=== PATIENT | female | born 1960 | race African-American/Black ===

== ENCOUNTER 2019-06-21 20:49 | Emergency (ER) | payer OTHER, SELFPAY ==
[2019-06-21 20:51] VITALS: BP 156/106; PULSE 116; RESP 22; TEMP 36.2; O2SAT 100
--- NOTE | 2019-06-21 21:04 | ED.EPISTAXIS ---
HPI - Epistaxis General Chief complaint: Epistaxis Stated complaint: nose bleed Time Seen by Provider: 06/21/19 21:03 Source: patient and RN notes reviewed Mode of arrival: ambulatory Limitations: no limitations History of Present Illness HPI Narrative: Pt is a 59 y/o -[place] female who presents to the ED with c/o epistaxis starting around 18:00 this evening. She notes that she was using the restroom this evening, when she suddenly noticed blood coming from her lt nostril. Pt states that her nose has been actively bleeding ever since. She notes that she has tried rinsing her nose with cold water, but denies having any relief of her symptoms. Pt states that she isn't currently taking any blood thinners. She denies any fever, chills, or other symptoms. MD complaint: epistaxis Location: left nostril Onset (ago): hour(s) (3) Duration: constant Associated symptoms: other (none) Treatment prior to arrival: other (rinsed lt nostril with cold water) Related Data Home Medications Medication Instructions Recorded Confirmed epinephrine 0.3 mg SUBCUT DAILY PRN 03/05/19 03/05/19 valacyclovir 500 mg PO DAILY PRN 03/05/19 03/05/19 Allergies Allergy/AdvReac Type Severity Reaction Status Date / Time shellfish derived Allergy Unknown Swelling Verified 06/21/19 21:00 of Lip/Tongue/Throat latex Allergy Redness of Verified 06/21/19 21:00 Skin Review of Systems Review of Systems: All systems reviewed & are unremarkable except as noted in HPI and below Constitutional: Constitutional: Denies chills and Denies fever(s) ENT: Reports epistaxis PMFSH Past Medical History Medical History Healthy female adult Surgical History Surgical History History of hysterectomy Hx of right breast biopsy Hx of tubal ligation Social History Social History Smoking status: Unknown if ever smoked Exam Const: General: alert Orientation/consciousness: patient oriented x3 HENMT: Head: normocephalic and atraumatic Ears: hearing grossly normal bilaterally General nose exam: Epistaxis present on the left active bleeding and source not visualized Mouth: Yes lip normal and Yes tongue normal Throat: posterior oropharynx normal and tonsils normal Neck: Neck: normal visual inspection Resp: Effort & Inspection: normal respiratory effort Psych: Mental Status: mental status grossly normal Affect: normal affect Course Course Emergency Course: Patient presented with epistaxis from right nostril. First I applied cotton ball soaked with lidocaine with epi to left nare. She continued to have bleeding with clots going posteriorly. I then removed cotton balls and patient blew nose to remove clots. I Applied afrin spray to nose and inserted 5.5 cm rapid rhino to left nare. Patient developed nausea and vomiting with dark blood. Patient assisted back to room without passing out. Reevaluation(s) Reevaluation #1: Patient states she feels better and she no longer have bleeding after rhino rocket in place Date: 06/21/19 Time: 22:42 Vital Signs Vital signs: Vital Signs Temperature 97.2 F L 06/21/19 20:51 Pulse Rate 116 H 06/21/19 20:51 Respiratory Rate 22 H 06/21/19 20:51 Blood Pressure 156/106 H 06/21/19 20:51 Pulse Oximetry 100 06/21/19 20:51 Temperature 98.5 F 06/21/19 22:59 Pulse Rate 85 06/21/19 22:59 Respiratory Rate 16 06/21/19 22:59 Blood Pressure 124/99 H 06/21/19 22:59 Pulse Oximetry 100 06/21/19 22:59 Procedures Epistaxis Control left: Epistaxis Control Date: 06/21/19 Epistaxis Control Time: 22:42 Time Out Performed: No Nose Prepped With: lidocaine Direct Inspection: unable to visualize Clots Removed by: blowing nose Cautery Used: none Device Inserted: nasal tampon Patient
[2019-06-21] MEDS: LIDO 1%/EPINEPHRINE 1:100,000 20 ML VIAL INFILTRATE (21:25)
--- NOTE | 2019-06-21 22:05 | PC.NURSE ---
Patient assisted into the bathroom. Patient pulls cord for help. Patient is in bathroom vomiting. Patient states she got really hot, then started to throw up. I guess it was the the blood that I swallowed. Patient was assisted into a w/c and taken back to the room. Patient states she did not fall. Patient states she feels better after vomiting. Patient was assisted back into the bed by this RN and an apartment maintenance technician. Patient denies any weakness or pain. EDP was in bathroom assisting.
[2019-06-21] MEDS: OXYMETAZOLINE HCL 0.05% NAS 15 ML BTL (*BKC) 2 SPRAY NASAL (22:20)
[2019-06-21] MEDS: ONDANSETRON HCL ODT 4 MG TABLET PO (22:46)
[2019-06-21 22:47] LABS: Basophils Absolute Auto 0.1 K/mm3 (0.0-0.1); Basophils Percent Auto 0.8 % (0.2-1.2); Eosinophils Absolute Auto 0.1 K/mm3 (0-0.3); Eosinophils Percent Auto 1.1 % (0-4.4); Hematocrit 39.6 % (37.0-47.0); Hemoglobin 13.6 g/dL (12.0-15.0); Immature Granulocyte Absolute 0.14 K/mm3 (0.00-0.031); Immature Granulocyte Percent A 1.4 % (0-0.5); Lymphocytes Absolute Auto 2.71 K/mm3 (0.9-3.2); Mean Corpuscular HGB Conc 34.3 g/dl (32-36); Mean Corpuscular Hemoglobin 31.6 pg (26-34); Mean Corpuscular Volume 92.1 fl (80-100); Mean Platelet Volume 9.3 fl (7.4-10.4); Monocytes Absolute Auto 0.7 K/mm3 (0.1-0.6); Monocytes Percent Auto 7.2 % (2.6-8.5); Neutrophils Absolute Auto 6.3 K/mm3 (1.3-6.7); Neutrophils Percent Auto 62.5 % (45.5-73.1); Platelet Count Result 374 k/mm3 (150-375); Red Cell Distribution Width 13.1 % (11.5-14.5)
[2019-06-21 22:50] VITALS: BP 110/61; BP 110/94; BP 130/90; PULSE 115; PULSE 77; PULSE 90
[2019-06-21 22:59] VITALS: BP 124/99; PULSE 85; RESP 16; TEMP 36.9; O2SAT 100
--- NOTE | 2019-06-21 23:23 | PC.NURSE ---
Yoly from Lab calls to inform this nurse that the pink top for the type and screen was hemolyzed and that there needs to be a redraw.
[2019-06-21 23:32] LABS: INR 0.9; Prothrombin Time 12.2 Seconds (11.1-14.7)
[2019-06-21 23:33] LABS: Partial Thromboplastin Time 23.9 SECONDS (22.3-36.8)
[2019-06-21 23:34] LABS: Alanine Aminotransferase 13 U/L (4-35); Albumin Level 4.5 g/dL (3.5-5.1); Alkaline Phosphatase 105 U/L (38-126); Aspartate Amino Transferase 22 U/L (14-36); Bilirubin,Total 0.5 mg/dL (0.2-1.3); Blood Urea Nitrogen 14 mg/dL (7-17); Calcium 9.2 mg/dL (8.4-10.2); Carbon Dioxide 24 mmol/L (22-30); Chloride 106 mmol/L (98-107); Estimated CRCL calculation 58 ml/min; Estimated Glomerular Filt Rate > 60; Glucose 119 mg/dL (65-105); Potassium 3.2 mmol/L (3.4-5.0); Sodium 139 mmol/L (137-145)
--- NOTE | 2019-06-21 23:37 | PC.NURSE ---
This nurse informed EDP that lab stated the type and screen was hemolyzed and would need to be redrawn. EDP stated it was no longer needed.
== END 2019-06-21 23:57 | disposition home or self-care (01) ==
PROVIDERS: Emergency Provider General Practice
DX: R04.0 Epistaxis (principal)
CPT/HCPCS: 30901; 36415; 80053; 85025; 85610; 85730; 86900; 86901; 99283; A9270

== ENCOUNTER 2019-06-22 08:50 | Emergency (ER) | payer OTHER, SELFPAY ==
[2019-06-22 08:59] VITALS: BP 130/100; PULSE 65; RESP 19; TEMP 36.3; O2SAT 99
--- NOTE | 2019-06-22 09:51 | ED.EPISTAXIS ---
HPI - Epistaxis General Chief complaint: Epistaxis Stated complaint: nose bleed Time Seen by Provider: 06/22/19 09:44 Source: patient Mode of arrival: ambulatory Limitations: no limitations History of Present Illness HPI Narrative: Patient is a 59-year-old female who presents to emergency department for evaluation of continued epistaxis patient was seen last night had Rhino Rocket placed left nare. Patient notes she continues to have oozing of blood was concern for possible rebleeding patient notes mild discomfort with the Rhino Rocket. Related Data Home Medications Medication Instructions Recorded Confirmed epinephrine 0.3 mg SUBCUT DAILY PRN 03/05/19 03/05/19 valacyclovir 500 mg PO DAILY PRN 03/05/19 03/05/19 Allergies Allergy/AdvReac Type Severity Reaction Status Date / Time shellfish derived Allergy Unknown Swelling Verified 06/21/19 21:00 of Lip/Tongue/Throat latex Allergy Redness of Verified 06/21/19 21:00 Skin Review of Systems Review of Systems: All systems reviewed & are unremarkable except as noted in HPI and below PMFSH Past Medical History Medical History Healthy female adult Surgical History Surgical History History of hysterectomy Hx of right breast biopsy Hx of tubal ligation Social History Social History Smoking status: Unknown if ever smoked Exam Narrative: Exam Narrative: GENERAL: Well-appearing, well-nourished, and in no acute distress. HEAD: Normocephalic, atraumatic. EYES: PERRLA and EOMI. ENT: Nares clear, patient with rhinorrhea resolved epistaxis no active bleeding Rhino Rocket was removed clot was expelled by having the patient blow their nose no bleeding occurred after which cottonball was placed in the left nare with Luca-Synephrine. Mucous membranes moist. Oropharynx without tonsillar hypertrophy exudate or other lesions. NECK: Supple. No adenopathy or masses. CHEST: Clear to auscultation. No respiratory distress. No wheezes rales or rhonchi HEART: Regular rate and rhythm. No murmur heard. EXTREMITIES: Normal range of motion. No edema. SKIN: Warm, dry, no rash. NEURO: No focal deficits. Alert and oriented x3. PSYCH: Normal mood and affect. Course Course Emergency Course: Patient in the room in no distress Vital Signs Vital signs: Vital Signs Temperature 97.4 F L 06/22/19 08:59 Pulse Rate 65 06/22/19 08:59 Respiratory Rate 19 06/22/19 08:59 Blood Pressure 130/100 H 06/22/19 08:59 Pulse Oximetry 99 06/22/19 08:59 Temperature 97.4 F L 06/22/19 08:59 Pulse Rate 65 06/22/19 08:59 Respiratory Rate 19 06/22/19 08:59 Blood Pressure 130/100 H 06/22/19 08:59 Pulse Oximetry 99 06/22/19 08:59 Procedures Epistaxis Control left: Epistaxis Control Date: 06/22/19 Epistaxis Control Time: 10:01 Nose Prepped With: phenylephrine Direct Inspection: yes Clots Removed by: blowing nose Patient Tolerated Procedure: well MDM - Epistaxis MDM Narrative Medical decision making narrative: Patient in the room in no distress Discharge Plan Discharge Clinical Impression: Epistaxis Patient Disposition: Home, Self-Care Condition: Stable Instructions: Antibiotic Form, Nosebleed (ED) Additional Instructions: Follow up with your primary care provider within 1-2 days. Go to ER for shortness of breath, difficulty breathing, chest pain, fever/chills, weakness, nauseau/vomitting, etc. or any other concerns. Take any prescribed medications as directed. If you do not have a drug allergy to tylenol or motrin and can tolerate it then take tylenol or motrin as needed for discomfort/pain. Prescriptions: No Action amoxicillin 875 mg tablet 875 mg PO Q12H Qty: 14 RF: 0 valacyclovir 500 mg tablet 500 mg P
== END 2019-06-22 10:18 | disposition home or self-care (01) ==
PROVIDERS: Emergency Provider Emergency Medicine; PCP Internal Medicine
DX: R04.0 Epistaxis (principal)
CPT/HCPCS: 99283; A9270

== ENCOUNTER 2019-07-12 07:45 | Outpatient (CLI) | payer OTHER, SELFPAY ==
--- NOTE | ~2019-07-12 | MMUS_ITS ---
EXAMINATION: MM diagnostic patrick BI w errol, US breast BI complete HISTORY: Right breast nodule 10:00 area TECHNIQUE: Bilateral ML, MLO and craniocaudal full field and right spot ML, MLO and craniocaudal 3-D tomosynthesis images were performed and synthetic 2-D images were generated. Rolled medial and rolled lateral craniocaudal views of right breast. Magnification views of left breast. CAD analysis was sub mitted and interpreted. High resolution complete bilateral breast ultrasound was performed. COMPARISON: None BREAST PARENCHYMAL COMPOSITION: The breasts are heterogeneously dense, which may obscure small masses . FINDINGS: MAMMOGRAPHIC FINDINGS: There is a history of benign right breast biopsy in 1978. There is asymmetry which may be secondary to history of prior right reportedly benign breast biopsy. No reproducible suspicious mass is detected. There is a cluster of indeterminate grouped microcalcifications in the posterior aspect of the upper outer quadrant of the left breast. No malignant calcification is evident otherwise. ULTRASOUND: There is some asymmetry and shadowing at 10-11 o'clock right breast associated with scar from previou s reported benign biopsy. No focal mass is identified at this location. There is no evidence of focal abnormal solid or cystic lesion or suspicious shadowing of either breas t otherwise. IMPRESSION: 1. Right upper outer quadrant breast scarring from reportedly benign prior biopsy. No mammographic ev idence of malignancy right breast 2. Indeterminate cluster of grouped microcalcifications in posterior aspect of upper outer left breas t; stereotactic biopsy is recommended BI-RADS category 4, suspicious findings. Dr. Amaya Telephoned the report to Principal Archaeologist Jesús at Dr. Rendon's office on 07/12/2019 at 100 2 hours with the report and left breast stereotactic biopsy recommendation. Recommendation: Stereotactic biopsy of left breast upper outer quadrant microcalcifications Reviewed, dictated and finalized at location A. IMPRESSION: 1. Right upper outer quadrant breast scarring from reportedly benign prior biop sy. No mammographic evidence of malignancy right breast 2. Indeterminate cluster of grouped microcalcifications in posterior aspect of upper outer left breast; stereotactic biopsy is recommended BI-RADS category 4, suspicious findings. Dr. Amaya Telephoned the report to Principal Archaeologist Jesús at Dr. Rendon's offi ce on 07/12/2019 at 1002 hours with the report and left breast stereotactic biop sy recommendation. Recommendation: Stereotactic biopsy of left breast upper outer quadrant microca lcifications
--- NOTE | ~2019-07-12 | XR_ITS ---
EXAMINATION: XR hip LT min 2V DATE: 07/12/2019 08:32 INDICATION: Left hip pain. TECHNIQUE: 2 views of left hip were obtained. COMPARISON: None. FINDINGS: Bone alignment is normal. No fracture. There is moderate left hip osteoarthritis. IMPRESSION: 1. Moderate left hip osteoarthritis. Reviewed, dictated and finalized at location A.
== END 2019-07-12 07:46 ==
PROVIDERS: PCP Internal Medicine; Visit Provider Internal Medicine
DX: Z12.31 Encounter for screening mammogram for malignant neoplasm of breast (principal); R92.8 Other abnormal and inconclusive findings on diagnostic imaging of breast; M16.12 Unilateral primary osteoarthritis, left hip
CPT/HCPCS: 73502; 76641; 77062; 77066; G0279

== ENCOUNTER → 2021-06-08 13:30 | Outpatient (CLI) | payer OTHER, SELFPAY ==
--- NOTE | ~2021-06-08 | MM_ITS ---
EXAMINATION: MM screening patrick BI w errol HISTORY: Screening TECHNIQUE: Craniocaudal and mediolateral oblique 3-D tomosynthesis images were obtained and synthetic 2-D images were generated. CAD analysis was submitted and interpreted. COMPARISON: Comparison to multiple prior studies sequentially, with oldest reviewed study dated 09/18. BREAST PARENCHYMAL COMPOSITION: There are scattered areas of fibroglandular density. FINDINGS: There is no evidence of suspicious mass, calcification, or architectural distortion to sugg est malignancy in either breast. There has been no suspicious interval change. IMPRESSION: 1. No mammographic evidence of malignancy. 2. Recommend routine screening mammography in one year. BI-RADS Category 1: Negative Reviewed, dictated and finalized at location A. CONSTRUCTION SUPERINTENDENT
== END ==
PROVIDERS: Visit Provider Internal Medicine
DX: Z12.31 Encounter for screening mammogram for malignant neoplasm of breast (principal)
CPT/HCPCS: 77063; 77067

== ENCOUNTER → 2021-06-26 11:13 | Outpatient (CLI) | payer OTHER, SELFPAY ==
--- NOTE | ~2021-06-26 | XR_ITS ---
EXAMINATION: XR chest 2V EXAM DATE: 06/26/2021 11:23 INDICATION: PRE OP EXAM, hip replacement 07/13/21; TECHNIQUE: Frontal and lateral projections of the chest obtained and reviewed. There is no prior willie dy for comparison. FINDINGS: The lungs are hyperinflated which can be seen with chronic obstructive pulmonary disease (a clinical diagnosis of functional impairment), but is not diagnostic of it. The lungs are clear. Th ere are no pleural effusions. The cardiomediastinal silhouette is within normal limits. There is no pneumothorax suspected. The bones and soft tissues are unremarkable. IMPRESSION: Hyperinflation. Reviewed, dictated and finalized at location G. IMPRESSION: Hyperinflation.
== END ==
DX: Z01.818 Encounter for other preprocedural examination (principal); R91.8 Other nonspecific abnormal finding of lung field
CPT/HCPCS: 71046

== ENCOUNTER 2021-06-29 08:21 | Outpatient (CLI) | payer OTHER, SELFPAY ==
--- NOTE | 2021-06-29 | ECG_ITS ---
Measurements Intervals [place] Rate: 72 P: 89 MS: 174 QRS: 11 QRSD: 89 T: 60 QT: 389 QTc: 426 Interpretive Statements SINUS RHYTHM DELAYED RS TRANSITION NO PREVIOUS ECG AVAILABLE FOR COMPARISON Electronically Signed On 06-29-2021 17:23:15 CDT by Lupillo Rodarte M.D.
--- NOTE | 2021-06-29 | ECHO_ITS ---
Patient Info Name: Tejal Granados Age: 61 years : 1960 Gender: Female Ht: 64 in Wt: 137 lbs BSA: 1.68 m2 HR: 78 bpm BP: 130 / 98 mmHg Heart Rhythm: Sinus Rhythm Technical Quality: Good Exam Date: 06/29/2021 9:04 AM Exam Location: [facility] Patient Status: Outpatient Admit Date: 06/29/2021 Staff Ordering Physician: JulietaLela MD Human Services Care Specialist: Bell Lopez RDCS Attending Provider: VladimirLela MD Referring Physician: Juventino Jackson MD; Exam Type: CA echo doppler color flow Study Info Indications I49.8 - Other specified cardiac arrhythmias Complete two-dimensional, color flow and Doppler transthoracic echocardiogram is performed. Summary 1. Complete two-dimensional, color flow and Doppler transthoracic echocardiogram is performed. 2. Unremarkable echocardiogram. 3. Trivial amount of tricuspid insufficiency is within physiologic normal limits. Left Ventricle Left ventricular chamber dimension is normal. Left ventricular systolic function is normal, estimated at 60-65%. The left ventricular diastolic function is normal. Right Ventricle Right ventricular chamber dimension is normal. Left Atria Left atrial chamber dimension is normal. Right Atria Right atrial chamber dimension is normal. Aortic Valve The aortic valve is normal. Pulmonic Valve The pulmonic valve is normal. Mitral Valve The mitral valve has normal leaflets. Tricuspid Valve The tricuspid valve leaflets are normal. There is trace tricuspid valve regurgitation. Pericardium/Pleural The pericardium appears normal. Aorta The aortic root size at the sinus of Valsalva is normal. Left Ventricular Outflow Tract Name Value Normal LVOT 2D LVOT Diameter 2.0 cm LVOT Doppler LVOT Peak Gradient 3 mmHg LVOT Mean Gradient 2 mmHg LVOT VTI 16 cm LVOT VTI/AV VTI Ratio 0.9 LVOT Stroke Volume 48 ml LVOT CO 3.7 l/min LVOT CI 2.2 l/min/m2 Pulmonic Valve Name Value Normal RVOT Doppler RVOT Peak Gradient 2 mmHg PV Doppler PV Peak Gradient 2 mmHg Mitral Valve Name Value Normal MV Doppler MV Decel [place] 497 cm/s2 MV PHT 54 ms MV Area (PHT) 4.0 cm2 4.0-5.0 MV [place]
== END 2021-06-29 08:22 | disposition home or self-care (01) ==
PROVIDERS: PCP Internal Medicine; Visit Provider Internal Medicine
DX: Z01.810 Encounter for preprocedural cardiovascular examination (principal); I49.8 Other specified cardiac arrhythmias
CPT/HCPCS: 93005; 93306

== ENCOUNTER 2022-04-25 07:04 | Day surgery (SDC) | payer OTHER, SELFPAY ==
[2022-02-14 13:49] VITALS: BMI 23.5
[2022-04-12 13:18] VITALS: BMI 23.4
--- NOTE | 2022-04-22 12:37 | P.PNAN_ITS ---
Anes - Initial Pre Proc Eval Procedure: Operation Date: 04/25/22 09:00 Proposed Procedures p Screening Colonoscopy - Jose Navarro MD Date/Time: 04/22/22 12:37 Surgeon: Jose Navarro MD Pre Op Diagnosis: Neoplasm Screening Patient Data Age: 61 Gender: F Height: 1.63 m Weight: 62 kg Allergies Allergy/AdvReac Type Severity Reaction Status Date / Time shellfish derived Allergy Severe Swelling Verified 04/25/22 07:46 of Lip/Tongue/Throat latex Allergy Redness of Verified 04/25/22 07:46 Skin Home Medications Medication Instructions Recorded Confirmed Type valacyclovir 500 mg tablet 500 mg PO DAILY PRN Outbreak 03/05/19 04/25/22 History epinephrine 0.3 mg/0.3 mL 0.3 ml IM PRN PRN Anaphylaxis 04/12/22 04/25/22 History injection, auto-injector Patient hx anesthesia problems: none Family hx anesthesia problems: none Results Review: All pre-operative results and documents have been reviewed as part of the pre-operative evaluation. [facility] Past Medical History Medical History (Updated 04/25/22 @ 08:49 by Jose Navarro MD) Colon cancer screening Healthy female adult Surgical History Surgical History History of hysterectomy Hx of right breast biopsy Hx of tubal ligation Social History Social History (Updated 06/04/20 @ 14:05 by Coty Aguero) Smoking packs per day: 0.5 Smoking cigarettes per day: 10.0 Years smoked: 25 Smoking pack-years: 12.50 Smoking status: Current every day smoker Tobacco type: cigarettes Alcohol intake: current Substance use: current Substance use type: marijuana Living arrangements: alone Spiritual care concerns: No Anes - Eval Final PreProcedure Day of Procedure 04/22/22 12:37 Patient weight: normal Heart: regular rate and rhythm Lungs: clear to auscultation and normal air movement Airway: Mallampati scale class II Neurological: alert and oriented Last oral intake: >/= 8 hours ASA classification: II Emergent: no Anesthetic plan: proceed Anesthesia type and monitoring: general GIVS and standard monitoring Results Review: All pre-operative results and documents have been reviewed as part of the pre- operative evaluation. Informed Consent: The patient's anesthetic plan and its attendant risks and benefits were discussed with the patient/family/POA. Questions were solicited and answers provided to the satisfaction of the patient/family/POA.
[2022-04-25 07:40] VITALS: BP 121/94; PULSE 102; RESP 20; TEMP 36.8; O2SAT 100
[2022-04-25] MEDS: LACTATED RINGERS 1,000 ML 150 ML IV CONT (07:54)
--- NOTE | 2022-04-25 08:48 | PM.HPGS ---
History of Present Illness History of Present Illness Consent: Risks, benefits, and alternatives have been discussed and questions answered. Patient agrees to proceed with procedure. Chief complaint: Neoplasm Screening Narrative: Tejal Granados is a 61 year old female here for first screening colonoscopy Review of Systems Constitutional: Constitutional: Denies headache(s) and Denies weakness Eyes: Eyes: Denies blurry vision ENT: Reports Normal hearing present, Denies headache(s) and Denies neck pain Cardiovascular: Cardiovascular: Denies chest pain and Denies dyspnea Respiratory: Respiratory: Denies dyspnea Gastrointestinal: Gastrointestinal: Reports no additional gastrointestinal complaints Genitourinary: Genitourinary: Denies dysuria Musculoskeletal: Musculoskeletal: Denies neck pain Integumentary/Breasts: Skin/Breast: Denies dry skin Neurologic: Reports Normal hearing present, Denies headache(s) and Denies weakness Psychiatric: Psychiatric: Denies anxiety Endocrine: Endocrine: Denies change in body appearance Hematologic/Lymphatic: Hematologic/Lymphatic: Denies easy bleeding Allergic/Immunologic: Allergic/Immunologic: Denies urticaria PMFSH Past Medical History Medical History (Updated 04/25/22 @ 08:49 by Jose Navarro MD) Colon cancer screening Healthy female adult Surgical History Surgical History History of hysterectomy Hx of right breast biopsy Hx of tubal ligation Social History Social History (Updated 06/04/20 @ 14:05 by Coty Aguero) Smoking packs per day: 0.5 Smoking cigarettes per day: 10.0 Years smoked: 25 Smoking pack-years: 12.50 Smoking status: Current every day smoker Tobacco type: cigarettes Alcohol intake: current Substance use: current Substance use type: marijuana Living arrangements: alone Spiritual care concerns: No Meds Home Medications and Allergies Home Medications Medication Instructions Recorded Confirmed Type valacyclovir 500 mg tablet 500 mg PO DAILY PRN Outbreak 03/05/19 04/25/22 History epinephrine 0.3 mg/0.3 mL 0.3 ml IM PRN PRN Anaphylaxis 04/12/22 04/25/22 History injection, auto-injector Allergies Allergy/AdvReac Type Severity Reaction Status Date / Time shellfish derived Allergy Severe Swelling Verified 04/25/22 07:46 of Lip/Tongue/Throat latex Allergy Redness of Verified 04/25/22 07:46 Skin Vital Signs Vital Signs - 24 hr 04/25/22 07:40 Temperature 98.3 F Pulse Rate 102 H Respiratory Rate 20 Blood Pressure 121/94 H Pulse Oximetry 100 Oxygen Delivery Room Air Exam Const: General: comfortable and no acute distress HENMT: Face/Nose/Sinus: Normal nares present Eyes: General: appearance normal, both eyes and all related structures Neck: Neck: no JVD Resp: Auscultation: clear to auscultation bilaterally Cardio: Rate: regular rate Rhythm: regular rhythm GI: Inspection: non-distended GI Palp: Yes Soft to palpation Skin: General skin exam: normal color Neuro: General: gait normal Speech: normal speech Extrem: General: normal to inspection Psych: Mental Status: mental status grossly normal Assessment and Plan Assessment and plan (1) Colon cancer screening: Code(s): Z12.11 - Encounter for screening for malignant neoplasm of colon Status: Acute Assessment and Plan: colonoscopy
[2022-04-25 09:10] VITALS: BP 126/93; PULSE 92; RESP 16; O2SAT 100
[2022-04-25 09:20] VITALS: BP 114/94; PULSE 89; RESP 16; O2SAT 100
[2022-04-25 09:30] VITALS: BP 120/93; PULSE 85; RESP 16; O2SAT 100
--- NOTE | 2022-04-25 09:38 | SUR.PHASEII ---
pt awake and alert. drinking water, talkative, using cell phone, states ready to go home.
--- NOTE | 2022-04-25 10:27 | SUR.PHASEII ---
0950; PT WALKED TO RESTROOM, STATES SHE HAD A SLIGHT AMT OF BLOOD WHEN SHE WENT TO THE BATHROOM. INSTRUCTED PT IF INCREASES IN AMT OR CONTINUES TO CALL DR OFFICE. PT VERBALIZED UNDERSTANDING.
--- NOTE | 2022-04-25 12:52 | WPDANESPN ---
Anes - Prog Note Post-Op Date/Time: 04/25/22 12:52 Cardiovascular status: normal Respiratory status: normal Airway patency: baseline Mental status: baseline Post-Op hydration status: normal Vital Signs: Last Vital Signs Temp 36.8 C 04/25/22 07:40 Pulse 85 04/25/22 09:30 Resp 16 04/25/22 09:30 BP 120/93 H 04/25/22 09:30 Pulse Ox 100 04/25/22 09:30 O2 Del Method Room Air 04/25/22 09:30 Pain Score (VAS): 0 I/O: Intake & Output 04/24/22 04/25/22 04/25/22 23:59 07:59 15:59 Intake Total 500 Balance 500 Post-procedural complaints: none Patient Feedback: Patient satisfied with anesthetic care. Other Findings: Patient vital signs back to baseline. Patient denies nausea and vomiting. Patient's pain under control. Patient OK for discharge.
== END 2022-04-25 09:52 | disposition home or self-care (01) ==
PROVIDERS: PCP Internal Medicine; Visit Provider Internal Medicine Gastroenterology
PROC: 0DJD8ZZ Inspection of Lower Intestinal Tract, Via Natural or Artificial Opening Endoscopic (ICD-10-PCS; CPT 45378; principal; 2022-04-25 09:00)
DX: Z12.11 Encounter for screening for malignant neoplasm of colon (principal)
CPT/HCPCS: 45378

== ENCOUNTER 2022-06-06 13:52 | Outpatient (CLI) | payer OTHER, SELFPAY ==
--- NOTE | ~2022-06-06 | CT_ITS ---
EXAMINATION: CT lung screening DATE: 06/06/2022 14:19 INDICATION: HX OF NICOTINE DEPENDENCE TECHNIQUE: Computed tomography (CT) of the chest was performed without intravenous contrast. Addition al 3D reconstructions utilizing coronal maximum intensity projection (MIP) were performed. Automated exposure control and iterative reconstruction technique were employed. The dose-length product was 62 .65 mGy-cm. COMPARISON: None FINDINGS: Mild linear discoid atelectasis at the bilateral lung bases. There are a few subsegmental endobronchi al lesions in the right middle and right lower lobes, the largest measuring up to 5 mm diameter most likely representing mucous plugging. No other suspicious pulmonary nodules, pneumonia, pulmonary bc a or pleural effusion. Heart size is normal. No pericardial effusion. Thoracic aorta is normal in [place] iber. No pathologically enlarged thoracic lymphadenopathy. Bones are unremarkable. IMPRESSION: 1. Lung-RADS category 2: Benign appearance or behavior. Continue annual screening with noncontrast lo w-dose chest CT in 12 months. Reviewed, dictated and finalized at location A. RESS SPECIALIST IMPRESSION: 1. Lung-RADS category 2: Benign appearance or behavior. Continue annual screeni ng with noncontrast low-dose chest CT in 12 months.
== END 2022-06-06 13:53 | disposition home or self-care (01) ==
PROVIDERS: PCP Internal Medicine; Visit Provider Internal Medicine
DX: Z12.2 Encounter for screening for malignant neoplasm of respiratory organs (principal); F17.210 Nicotine dependence, cigarettes, uncomplicated
CPT/HCPCS: 71271